=== PATIENT | female | born 1990 | race Hispanic/Latino ===

== ENCOUNTER 2021-04-20 22:49 | Emergency (ER) | payer MEDICAID ==
[2021-04-20 23:26] VITALS: BP 102/61
--- NOTE | 2021-04-20 23:40 | Emergency Department Report ---
ED Headache HPI - General Chief Complaint: Headache Stated Complaint: HEAD PAIN Time Seen by Provider: 04/20/21 23:29 Source: patient Exam Limitations: no limitations - History of Present Illness Initial Comments: Chief complaint: I have a knot on my head. I had a concussion HPI: This is a 31-year-old female with history of head injury 1 year ago presents with 1 month of left temporal headache and a "knot" on the back of her head. 1 year ago she had a concussion due to head trauma. She is concerned that she may have internal bleeding from this remote injury. She request CT head scan. Patient had a gradual onset of 1 month of left temporal headache. She denies blurry vision denies neck pain denies vomiting. She has a cyst on her scalp. She is taking multiple [id number] medications include Goody's powder. Headache is mild dull throbbing Timing/Duration: other (1 month) Quality: mild Recent Head Trauma: frequent headaches Associated Symptoms: other (Scalp cyst) Home Medications: Ambulatory Orders Butalb/Acetaminophen/Caffeine [Fioricet 50-300-40 mg CAP] 1 cap PO Q6HR PRN #10 cap 04/20/21 Ibuprofen [Motrin 400 MG tab] 400 mg PO Q8H PRN #10 tablet 04/20/21 ED Review of Systems ROS: Stated complaint: HEAD PAIN Other details as noted in HPI Comment: All other systems reviewed and negative Constitutional: denies: chills, fever, malaise Respiratory: denies: cough, shortness of breath Cardiovascular: denies: chest pain Gastrointestinal: denies: abdominal pain, nausea, vomiting Skin: lesions Neurological: headache. denies: numbness, paresthesias, confusion, abnormal gait ED Past Medical Hx - Past Medical History Previous Medical History?: No - Surgical History Past Surgical History?: No - Medications Home Medications: Home Medications Medication Instructions Recorded Confirmed Last Taken Type Butalb/Acetaminophen/Caffeine 1 cap PO Q6HR PRN #10 cap 04/20/21 Unknown Rx [Fioricet 50-300-40 mg CAP] Ibuprofen [Motrin 400 MG tab] 400 mg PO Q8H PRN #10 tablet 04/20/21 Unknown Rx ED Physical Exam - General Limitations: No Limitations General appearance: alert, in no apparent distress - Head Head exam: Present: atraumatic, normocephalic, other (Small 1 cm cyst with overlying scab no purulence no erythema) - Eye Eye exam: Present: normal appearance - ENT ENT exam: Present: mucous membranes moist - Neck Neck exam: Present: normal inspection, full ROM - Respiratory Respiratory exam: Present: normal lung sounds bilaterally. Absent: respiratory distress, wheezes, rales, rhonchi - Cardiovascular Cardiovascular Exam: Present: regular rate, normal rhythm, normal heart sounds. Absent: systolic murmur, diastolic murmur, rubs, gallop - GI/Abdominal GI/Abdominal exam: Present: soft, normal bowel sounds. Absent: distended, tenderness, guarding, rebound - Extremities Exam Extremities exam: Present: normal inspection - Neurological Exam Neurological exam: Present: alert, oriented X3, normal gait, other (Appears comfortable eating food) - Psychiatric Psychiatric exam: Present: normal affect, normal mood - Skin Skin exam: Present: warm, dry, intact, normal color. Absent: rash ED Course Vital Signs 04/20/21 23:25 Temperature 98.3 F Pulse Rate 82 Respiratory 16 Rate Blood Pressure 102/61 O2 Sat by Pulse 97 Oximetry ED Medical Decision Making - Medical Decision Making 1. Tension headache: No red flags such as sudden onset neurological deficit mild in nature prescribed ibuprofen and Fioricet 2. dermoid cyst of scalp no further treatment needed Critical care attestation.: If time is entered above; I have spent that time in minutes in the direct care of this critically ill patient, excluding procedure time. ED Disposition Clinical Impression: Tension headache, Scalp cyst Disposition: 01 HOME / SELF CARE / HOMELESS Is pt being admited?: No Does the pt Need Aspirin: No Condition: Stable Instructions: Tension Headache, Adult, [id number] Prescriptions: Butalb/Acetaminophen/Caffeine [Fioricet 50-300-40 mg CAP] 1 cap PO Q6HR PRN #10 cap PRN Reason: Headache Ibuprofen [Motrin 400 MG tab] 400 mg PO Q8H PRN #10 tablet PRN Reason: Pain , Severe (7-10) Referrals: NUVIA KAPLAN MD [Referring] - 3-5 Days
[2021-04-20] MEDS ORDERED: IBUPROFEN 800 MG TAB PO ONE (23:41)
[2021-04-20] MEDS ORDERED: ONDANSETRON 4 MG ODT TAB PO ONE (23:41)
== END 2021-04-21 00:24 | disposition home or self-care (01) ==
LOC: ED 22:49
DX: G44.209 Tension-type headache, unspecified, not intractable (principal); L72.12 Trichodermal cyst; Z79.899 Other long term (current) drug therapy
CPT/HCPCS: 99282; Q0162

== ENCOUNTER 2021-06-29 07:47 | Emergency (ER) | payer MEDICAID ==
[2021-06-29 07:53] VITALS: BP 107/73
== END 2021-06-29 07:50 | disposition left against medical advice (07) ==
LOC: ED 07:47
DX: T16.2XXA Foreign body in left ear, initial encounter (principal); Z53.21 Procedure and treatment not carried out due to patient leaving prior to being seen by health care provider; X58.XXXA Exposure to other specified factors, initial encounter; Y93.89 Activity, other specified; Y92.89 Other specified places as the place of occurrence of the external cause; Y99.8 Other external cause status

== ENCOUNTER 2021-06-30 21:58 | Emergency (ER) | payer SELFPAY | END 2021-07-01 04:30 | disposition left against medical advice (07) | LOC: ED 21:58 | DX: T16.9XXA Foreign body in ear, unspecified ear, initial encounter (principal); Z53.21 Procedure and treatment not carried out due to patient leaving prior to being seen by health care provider ==

== ENCOUNTER 2021-11-21 19:43 | Emergency (ER) | payer SELFPAY ==
[2021-11-21 20:13] VITALS: BP 135/86
== END 2021-11-22 11:09 ==
LOC: ED 19:43
DX: R10.9 Unspecified abdominal pain (principal); Z53.21 Procedure and treatment not carried out due to patient leaving prior to being seen by health care provider